=== PATIENT | female | born 1985 | race Caucasian/White ===

== ENCOUNTER 2019-05-14 09:46 | Emergency (ER) | payer SELFPAY ==
[~2019-05-14] VITALS: Ht 157.5 cm; Wt 79.4 kg
[2019-05-14 09:46] VITALS: BP 145/94
--- NOTE | 2019-05-14 10:04 | PHYS DOC ---
Text Text Pinkeye involving left eye. Topical eyedrops prescribed. General Chief Complaint: EYE PROBLEMS Stated Complaint: EYE PROBLEM Time Seen by MD: 09:57 Source: patient History of Present Illness Initial Comments Left eye redness, tearing and crusting. Symptom onset 3 days ago. No change of vision, ocular pain. No foreign body sensation. Patient does not wear corrective eyewear or lenses. Timing/Duration: gradual Severity: mild Location: eye (L) Prearrival Treatment: no prearrival treatment Associated Symptoms: denies symptoms Allergies: Coded Allergies: Penicillins (Verified Allergy, Unknown, 05/14/19) Past Medical History Medical History: no pertinent history Surgical History: no surgical history Constitutional: no symptoms reported Eyes: denies blurred vision; drainage; denies decreased acuity, denies foreign body sensation; inflammation; denies pain, denies photophobia, denies previous injury Ears: no symptoms reported Nose: no symptoms reported Mouth: no symptoms reported Throat: no symptoms reported Respiratory: no symptoms reported Cardiovascular: no symptoms reported Gastrointestinal: no symptoms reported Physical Exam Eyes: left eye conjunctival inflammation, left eye other Nose: normal inspection Mouth/Throat: normal mouth inspection Neck: non-tender, other KWASI LEE DO May 14, 2019 10:03
[2019-05-14] MEDS ORDERED: SULF5DRO EACHEYE (10:06)
== END 2019-05-14 10:08 | disposition home or self-care (01) ==
LOC: ER 09:46
DX: H10.9 Unspecified conjunctivitis (principal); H10.022 Other mucopurulent conjunctivitis, left eye; Z88.0 Allergy status to penicillin
CPT/HCPCS: 99283